=== PATIENT | male | born 1990 | race Two or more races ===

== ENCOUNTER 2019-07-14 04:56 | Emergency (ER) | payer OTHER ==
[~2019-07-14] VITALS: Ht 180.3 cm; Wt 156.8 kg
[2019-07-14] MEDS ORDERED: INSU100V SQ (05:01)
[2019-07-14 05:22] LABS: GLUCOSE,POINT OF CARE 358 MG/DL (70-110)
[2019-07-14 06:30] VITALS: BP 132/79
== END 2019-07-14 06:44 | disposition home or self-care (01) ==
LOC: EMS 04:56
DX: T16.2XXA Foreign body in left ear, initial encounter (principal); E11.65 Type 2 diabetes mellitus with hyperglycemia; I10 Essential (primary) hypertension; Z88.5 Allergy status to narcotic agent; Z79.4 Long term (current) use of insulin; W45.8XXA Other foreign body or object entering through skin, initial encounter; Y93.89 Activity, other specified; Y92.89 Other specified places as the place of occurrence of the external cause; Y99.8 Other external cause status
CPT/HCPCS: 69200